=== PATIENT | female | born 1980 | race Caucasian/White ===

== ENCOUNTER → 2017-03-14 | Outpatient (CLI) | payer BC ==
[~2017-03-14] MED LIST: IBU800 M1 PO; NATURE'S BLE1000 MCG PO; NORCO 325 MG-7.1 TAB; SYNTHROID0.1 MG/TAB PO
== END ==
LOC: COL.RAD 10:30
DX: E04.2 Nontoxic multinodular goiter (principal); R59.0 Localized enlarged lymph nodes